=== PATIENT | female | born 1965 | race Caucasian/White ===

== ENCOUNTER 2025-05-07 09:40 | Emergency (ER) | payer OTHER, SELFPAY ==
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
[2025-05-07 09:47] VITALS: BP 170/88; BP 200/120; PULSE 103; PULSE 120; RESP 19; TEMP 36.7; O2SAT 100; O2SAT 97; BMI 40.6
[2025-05-07 10:17] VITALS: BP 133/68; PULSE 98; RESP 16; TEMP 36.7; O2SAT 93
--- OUTSIDE RECORDS SUMMARY | 2025-05-07 10:18 | XMS_ITS ---
Author Name [facility] Organization Unknown Care Team Organization Name Specialty Phone Email Start Date End Da te [facility] Arsalan Puckett [facility] 08/19/2022
--- OUTSIDE RECORDS SUMMARY | 2025-05-07 10:19 | XMS_ITS | Clinical Summary ---
Author Organization [facility] [address] [facility] Address [address] [facility] [place] [address] Phone Care Team Providers Care Warehouse Selector Name Role Phone Arsalan Puckett Primary Care Provider [phone] Allergies Active Allergy Reactions Criticality Noted Date Comments Amoxicillin Trihydrate Hives,Nausea And Vomiting 09/16/2007 Codeine Hives 09/16/2007 Hydrocodone-Acetaminophen Hallucinations 2007 Oxycodone-Acetaminophen Hallucinations 03/02/20 08 [place] 04/06/2018 Tramadol Hcl Hallucinations 03/02/2008 Medications blood-glucose meter kit 1 Lancet by extracorporeal route 1 (one) time each day. E11.9 2 Active metFORMIN (GLUCOPHAGE) 500 mg tablet Take 1 tablet (500 mg total) by mouth 1 (one) time each day with breakfast. E11.9 4 Active levocetirizine (XYZAL) 5 mg tablet Take 1 tablet (5 mg total) by mouth 1 (one) time each day in the evening. Active fluticasone propionate (FLONASE) 50 mcg/actuation nasal spray Administer 2 sprays into affected nostril(s) 1 (one) time each day. 3 Active pedi multivit no.17 w-fluoride 0.25 mg tablet,chewabl e Chew 1 tablet 1 (one) time each day. 2 Active acetaminophen (TYLENOL) 500 mg tablet Take 2 tablets (1,000 mg total) by mouth 3 (three) times a day. 2 Active losartan (COZAAR) 25 mg tablet Take 1 tablet (25 mg total) by mouth 1 (one) time each day. 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 Evaluation by Dr. Bret Barton at the [facility] gastroenterology department, 05/06/2019. Further evaluation of this cyst at this time is not indicated due to its small size. Risk of malignant transformation does not increase until cyst size exceeds 3 cm. He recommended repeat MRI scan in 2021. Enlarged uterus 04/06/2018 Overview (08/19/2024): On CT scan March 2018 Vitamin D deficiency 11/29/2013 Overview (08/19/2024): On weekly supplement 11/29 Obesity, unspecified 10/27/2012 Depression, reactive 12/03/2007 Immunizations Name Administration Dates Next Due Moderna (age 6mo & older) Bi valent, COVID-19, 0.5 mL or 0.25 mL dosage 09/03/2022 Moderna SARS-CoV-2 COVID-19, mRNA, LNP-S, preservative free 07/31/2023,09/14/2021 Td Tetanus diptheria (Tdvax) 7yo and older 05/20 Tdap Tetanus diptheria acell ular pertussis (Boostrix; Adacel) 7yo and older 04/11/2013 Zoster recombinant (Shingrix) 19yo and older ,08/20/2023 Surgical History Surgery Date Site/Laterality Comments CHOLECYSTECTOMY 1996 PROCEDURE: WA LAPAROSCOPY SURG CHOLECYSTECTOMY OTHER SURGICAL HISTORY 01/2008 PROCEDURE: ARTHROSCOPY PROCEDURE NEC; COMMENT: knee surgery dr hebert OTHER SURGICAL HISTORY 12/30/2021 PROCEDURE: WA DILATION & CURETTAGE DX&/THER NONOBSTETRIC; COMMENT: hysteroscopy, D&C polypectomy - dr. henderson OTHER SURGICAL HISTORY 02/17/2022 PROCEDURE: WA LAPAROSCOPY TOT HYSTERECTOMY >250 G W/TUBE/OVAR; COMMENT: Robotic-assisted total laparoscopic hysterectomy with bilateral salpingo-oophorectomy and bilateral sentinel lymph node biopsy with Firefly, repair of vaginal laceration on 02/17/22. Medical History Medical History Date Comments Depression 2008 DX:Depression Enlarged uterus 04/06/2018 DX:Enlarged uter us; COMMENT: On CT scan March 2018 Hypertension DX:Hypertension Family History Medical History Relation Name Comments Hypertension Father Stroke Father Diabetes Maternal Grandfather Diabetes Maternal Grandmother Diabetes Mother Hypertension Mother Colon cancer Mother's side Aunt Breast cancer Neg Hx Ovarian cancer Neg Hx Relation Name Status Comments Brother Alive Father Alive stroke Maternal Grandfather Maternal Grandmother Mother Alive dm htn choleste rol Mother's side Social History Tobacco Use Types Packs/Day Years Used Date Smoking Tobacco: Never Smokeless Tobacco: Never Tobacco Cessation:Counseling Given: Not Answered Alcohol Use Standard Drinks/Week Comments Yes 0 (1 standard drink = 0.6 oz pur e alcohol) Comments Unknown Sex and Gender Information Value Date Recorded Sex Assigned at Female 08/30/2024 7:54 PM EST Legal Sex Female 9:42 PM EST Gender Identity Female 08/30/2024 7:54 PM EST Sexual Orientation Straight 08/30/2024 7: 54 PM EST Obstetrics History Para Term AB IAB SAB Ectopic Multiple Livin g Live Births 0 0 0 Last Filed Vital Signs Vital Sign Reading Time Taken Comments Blood Pressure 143/85 12/16/2024 8:37 AM EST Pulse 83 12/16/2024 8:37 AM EST Temperature 36.3 C (97.3 F) 12/16/2024 8:37 AM EST Respiratory Rate 16 12/16/2024 8:37 AM EST Oxygen Saturation - - Inhaled Oxygen Concentration - - Weight 113 kg (248 lb 3.2 oz) 12/16/2024 8:37 AM EST Height 172.7 cm (5' 8 ) 12/16/2024 8:37 AM EST Body Mass Index 37.74 12/16/2024 8:37 AM EST Plan of Treatment Upcoming Encounters Date Type Department Care Team (Late st Contact Info) Description 05/10/2025 8:30 AM EDT Office Visit [facility] - [address] [phone] Arsalan Puckett, PA [address] [place], [place] 07/28/2025 9:00 AM EDT Office Visit Gastroenterology - [place] [address] [facility] [address] [facility] [address] [place] [address] Kika Olivo, TUSHAR [address] [facility] [address] [place] [address] 02/05/2026 8:20 AM EDT Appointment Radiology Department - [address] [phone] Health Maintenance Due Date Last Done Comments Hepatitis A Vaccines (1 of 2 - Risk 2-dose series) 1986 Hepatitis B Vaccines (1 of 3 - 19+ 3-dose series) 1986 Pneumococcal Vaccine: 50+ Years (1 of 2 - PCV) 1986 Cervical Cancer Screening: HPV 01/27/1988 Colorectal Cancer Screening: Stool Based Tests (FOBT/FIT) 09/20/2022 HIV Screening 09/20/2022 Social Influencers of Health Screening 09/20/2022 COVID-19 Vaccine ( season) 2024 07/31/2023, 09/03/2022, 09/14/2021, Additional history exists Depression Screening 10/12/2024 Diabetes: Blood Sugar Control Test (HGBA1C) 10/21/2025 04/20/2025, 12/09/2024, 05/23/2024, Additional history exists Diabetes: Annual Retina Eye Exam 12/07/2025 12/07/2024, 11/18/2023 Diabetes: Annual Foot Exam 12/13/2025 12/13/2024, Diabetes: Annual Urine Albumin-Creatinine Ratio (uACR) 04/20/2026 04/20/2025, 12/09/2024, 05/23/2024 Diabetes: Annual GFR (Glomerular Filtration Rate) 04/20/2026 04/20/2025, 12/09/2024, 05/23/2024, Additional history exists Hypertension/CHF/CAD Annual BMP Blood Test 04/20/2026 04/20/2025, 12/09/2024, 05/23/2024, Additional history exists Breast Cancer Screening 02/04/2027 02/05/20, 01/02/2024, 12/06/2022, Additional history exists Cholesterol Screening (Lipid Panel) 04/20/2030 04/20/2025, 12/09/2024, 05/23/2024, Additional history exists DTaP,Tdap,and Td Vaccines (3 - Td or Tdap) 05/20/2033 05/20/2023, 04/11/2013 Hepatitis C Screening Completed 03/03/2022 Colorectal Cancer Screening: Colonoscopy Discontinued 05/19/2023 Zoster Vaccines Completed 11/05/2023, 08/20/2023 HIB Vaccines Aged Out No longer eligi ble based on patient's age to complete this topic HPV Vaccines Aged Out No longer eligi ble based on patient's age to complete this topic IPV Vaccines Aged Out No longer eligi ble based on patient's age to complete this topic Influenza Vaccine Discontinued MMR Vaccines Aged Out No longer eligi ble based on patient's age to complete this topic Meningococcal ACWY Vaccine Aged Out N o longer eligible based on patient's age to complete this topic Meningococcal B Vaccine Aged Out No l onger eligible based on patient's age to complete this topic RSV Immunization Patients Under 20 months Aged Out No longer eligible based on patient's age to complete this topic Varicella Vaccines Aged Out No longer eligible based on patient's age to complete this topic Procedures Procedure Name Priority Date/Time Associated Diagnosis Comments LIPID PANEL WITH REFLEX TO DIRECT LDL Routine 04/20/2025 9:15 AM EDT Type 2 diabetes mellitus without complication, without long-term current use of insulin ([facility] V24, [facility] V28) Other hyperlipidemia Essential hypertension Hepatic steatosis Obesity without serious comorbidity, unspecified class, unspecified obesity type Depression, reactive Vitamin D deficiency Pancreatic cyst MICROALBUMIN CREATININE URINE RATIO Routine 04/20/2025 9:15 AM EDT Type 2 diabetes mellitus without complication, without long-term current use of insulin ([facility] V24, [facility] V28) Other hyperlipidemia Essential hypertension Hepatic steatosis Obesity without serious comorbidity, unspecified class, unspecified obesity type Depression, reactive Vitamin D deficiency Pancreatic cyst COMPREHENSIVE METABOLIC PANEL Routine 04/20/2025 9:15 AM EDT Type 2 diabetes mellitus without complication, without long-term current use of insulin ([facility] V24, [facility] V28) Other hyperlipidemia Essential hypertension Hepatic steatosis Obesity without serious comorbidity, unspecified class, unspecified obesity type Depression, reactive Vitamin D deficiency Pancreatic cyst HEMOGLOBIN A1C Routine 04/20/2025 9:15 AM EDT Type 2 diabetes mellitus without complication, without long-term current use of insulin ([facility] V24, [facility] V28) Other hyperlipidemia Essential hypertension Hepatic steatosis Obesity without serious comorbidity, unspecified class, unspecified obesity type Depression, reactive Vitamin D deficiency Pancreatic cyst VITAMIN D 25 HYDROXY Routine 04/20/2025 9:15 AM EDT Type 2 diabetes mellitus without complication, without long-term current use of insulin ([facility] V24, [facility] V28) Other hyperlipidemia Essential hypertension Hepatic steatosis Obesity without serious comorbidity, unspecified class, unspecified obesity type Depression, reactive Vitamin D deficiency Pancreatic cyst MG MAMMO DIGITAL SCREENING W MUNIR BILAT Routine 02/04/2025 8:34 AM EDT Encounter for screening mammogram for breast cancer DIABETES EYE EXAM Routine 11/18/2023 DIABETES FOOT EXAM Routine 10/20/2023 COLONOSCOPY Routine 05/19/2023 HEPATITIS C SCREENING Routine 03/03/2022 from Last 3 Months or Most Recently Relevant to Health Maintenance Results * (ABNORMAL) Lipid panel with reflex to direct LDL (04/20/2025 9:15 AM EDT) Cholesterol 165 0 - 200 mg/dL LAB CHEMISTRY METHOD 04/20/2025 3:41 PM EDT [facility] Triglycerides 189(H) 0 - 150 mg/dL LAB CHEMISTRY METHOD 04/20/2025 3:41 PM EDT [facility] HDL 43 >=40 mg/dL LAB CHEMISTRY METHOD 04/20/2025 3:41 PM EDT [facility] LDL Calculated 84 0 - 100 mg/dL LAB CHEMISTRY METHOD 04/20/2025 3:41 PM EDT [facility] VLDL Cholesterol [place] 37.8 mg/dL LAB CHEMISTRY METHOD 04/20/2025 3:41 PM EDT [facility] Non HDL Chol. (LDL+VLDL) 122 <145 mg/dL LAB CHEMISTRY METHOD 04/20/2025 3:41 PM EDT [facility] Chol/HDL Ratio 3.8 0.0 - 4.4 LAB CHEMISTRY METHOD 04/20/2025 3:41 PM EDT [facility] Blood Venous blood specimen / Unknown Venipuncture / Unknown 04/20/2025 9:15 AM EDT 04/20/2025 9:15 AM EDT us Arsalan LONGORIA LAB BLOOD ORDERABLES Sharon l Result [facility] [address] [place] [address], * Microalbumin creatinine urine ratio (04/20/2025 9:15 AM EDT) Creatinine, Urine 190.0 mg/dL LAB CHEMISTRY METHOD 04/20/2025 11:49 AM EDT [facility] Microalb, Ur 25.6 0.0 - 29.0 mg/L LAB CHEMISTRY METHOD 04/20/2025 11:49 AM EDT [facility] Microalb/Creat Ratio 13 <30 mg/g creat LAB CHEMISTRY METHOD 04/20/2025 11:49 AM EDT [facility] Urine Urine specimen obtained by clean catch procedure / Unknown Non-blood Collection / Unknown 04/20/2025 9:15 AM EDT 04/20/2025 9:15 AM EDT Arsalan LONGORIA LAB URINE ORDERABLES Sharon l Result Performing Organization Address [facility]/ZIP Co de Phone Number [facility] [address] [place] [address], [place] [phone] * Vitamin D 25 hydroxy (04/20/2025 9:15 AM EDT) Vit D, 25-Hydroxy 36.4 30.0 - 80.0 ng/mL LAB CHEMISTRY METHOD 04/20/2025 4:22 PM EDT [facility] Blood Venous blood specimen / Unknown Venipuncture / Unknown 04/20/2025 9:15 AM EDT 04/20/2025 9:15 AM EDT Arsalan LONGORIA LAB BLOOD ORDERABLES Sharon l Result [facility] [address] [place] [address], [place] [phone] * (ABNORMAL) Hemoglobin A1c (04/20/2025 9:15 AM EDT) Hemoglobin A1C 6.6(H) <6.5 % LAB CHEMISTRY METHOD 04/20/2025 12:18 PM EDT [facility] Mean Bld Glu Estim. 143 mg/dL LAB CHEMISTRY METHOD 04/20/2025 12:18 PM [facility] Blood Venous blood specimen / Unknown Venipuncture / Unknown 04/20/2025 9:15 AM EDT 04/20/2025 9:15 AM EDT Arsalan LONGORIA LAB BLOOD ORDERABLES Sharon l Result [facility] [address] [place] [address], * (ABNORMAL) Comprehensive metabolic panel (04/20/2025 9:15 AM EDT) Sodium 140 133 - 145 mmol/L LAB CHEMISTRY METHOD 04/20/2025 3:41 PM [facility] Potassium 4.1 3.5 - 5.5 mmol/L LAB CHEMISTRY METHOD 04/20/2025 3:41 PM [facility] Chloride 105 96 - 110 mmol/L LAB CHEMISTRY METHOD 04/20/2025 3:41 PM [facility] CO2 29 21 - 32 mmol/L LAB CHEMISTRY METHOD 04/20/2025 3:41 PM [facility] Anion Gap 6 3 - 11 LAB CHEMISTRY METHOD 04/20/2025 3:41 PM [facility] Glucose 121(H) 70 - 100 mg/dL LAB CHEMISTRY METHOD 04/20/2025 3:41 PM [facility] BUN 13 5 - 25 mg/dL LAB CHEMISTRY METHOD 04/20/2025 3:41 PM [facility] Creatinine 0.70 0.50 - 1.10 mg/dL LAB CHEMISTRY METHOD 04/20/2025 3:41 PM [facility] eGFR 100 >=60 mL/min/1. 73m2 LAB CHEMISTRY METHOD 04/20/2025 3:41 PM [facility] Comment:Calculation based on the Chronic Kidney Disease Epidemiology Collaboration (CKD-EPI) equation refit without adjustment for race. BUN/Creatinine Ratio 18.6 LAB CHEMISTRY METHOD 04/20/2025 3:41 PM EDT [facility] Calcium 9.1 8.5 - 10.5 mg/dL LAB CHEMISTRY METHOD 04/20/2025 3:41 PM EDT [facility] AST (SGOT) 29 10 - 42 unit/L LAB CHEMISTRY METHOD 04/20/2025 3:41 PM EDT [facility] ALT (SGPT) 59 10 - 60 unit/L LAB CHEMISTRY METHOD 04/20/2025 3:41 PM EDT [facility] Alkaline Phosphatase 99 42 - 121 unit/L LAB CHEMISTRY METHOD 04/20/2025 3:41 PM [facility] Total Protein 7.3 6.0 - 8.0 g/dL LAB CHEMISTRY METHOD 04/20/2025 3:41 PM EDT [facility] Albumin 4.0 3.2 - 5.0 g/dL LAB CHEMISTRY METHOD 04/20/2025 3:41 PM T [facility] Total Bilirubin 0.7 0.0 - 1.4 mg/dL LAB CHEMISTRY METHOD 04/20/2025 3:41 PM EDT [facility] Blood Venous blood specimen / Unknown Venipuncture / Unknown 04/20/2025 9:15 AM EDT 04/20/2025 9:15 AM EDT us Arsalan LONGORIA LAB BLOOD ORDERABLES Sharon l Result [facility] [address] [place] [address], * MG Mammo Digital Screening w Munir bilat (02/04/2025 8:34 AM EDT) Anatomical Region Laterality Modality Breast Bilateral Mammography 02/04/2025 4:28 PM EDT Impressions 02/04/2025 4:32 PM EDT No mammographic evidence of malignancy. BI-RADS CATEGORY: 1 - NEGATIVE RECOMMENDATION: Screening bilateral mammogram is recommended in 1 year. Mammo Location: [facility], [address] [place] [address], [id number], . -------- FINAL REPORT -------- Dictated By: Karissa Maria Dictated Date: 02/04/2025 16:28 ET Assigned Physician: Karissa Maria Reviewed and Electronically Signed By: Karissa Maria Signed Date: 02/04/2025 16:32 ET Workstation ID: [id number] Transcribed By: Self Edit Transcribed Date: 02/04/2025 16:28 ET Narrative 02/04/2025 4:32 PM EDT Bilateral screening mammogram. CLINICAL: 60 years old, Female, routine annual exam. COMPARISON: Prior studies, latest from 01/02/2024. TECHNIQUE: Bilateral MLO and CC views were obtained digitally with 2-D C views and 3-D mammogram (digital breast tomosynthesis). Examination was slightly limited due to patient's body habitus. Total 11 images were obtained. Computer-aided detection was utilized in evaluation of this exam (CAD). FINDINGS: There is no evidence of suspicious mass or architectural distortion. No worrisome calcifications are evident. There has been no significant change from prior exam(s). BREAST DENSITY: B - There are scattered areas of fibroglandular density. Procedure Note Karissa Maria MD - 02/04/2025 Bilateral screening mammogram. CLINICAL: 60 years old, Female, routine annual exam. COMPARISON: Prior studies, latest from 01/02/2024. TECHNIQUE: Bilateral MLO and CC views were obtained digitally with 2-D Cviews and 3-D mammogram (digital breast tomosynthesis). Examination wasslightly limited due to patient's body habitus. Total 11 images wereobtained. Computer-aided detection was utilized in evaluation of thisexam (CAD). FINDINGS: There is no evidence of suspicious mass or architectural distortion. Noworrisome calcifications are evident. There has been no significantchange from prior exam(s). BREAST DENSITY: B - There are scattered areas of fibroglandular density. IMPRESSION: No mammographic evidence of malignancy. BI-RADS CATEGORY: 1 - NEGATIVE RECOMMENDATION: Screening bilateral mammogram is recommended in 1 year. Mammo Location: [facility], [address] [place] [address], [id number], . -------- FINAL REPORT -------- Dictated By: Karissa Maria Dictated Date: 02/04/2025 16:28 ET Assigned Physician: Karissa Maria Reviewed and Electronically Signed By: Karissa Maria Signed Date: 02/04/2025 16:32 ET Workstation ID: [id number] Transcribed By: Self Edit Transcribed Date: 02/04/2025 16:28 ET Arsalan LONGORIA IMG BI PROCEDURES Final R esult * Diabetes Eye Exam (11/18/2023) [facility] Diabetes: Annual Retina Eye Exam abstracted [facility] Provider HEALTH MAINTENANCE Final Result * Diabetes Foot Exam (10/20/2023) [facility] Diabetes: Annual Foot Exam abstracted Result [facility] HEALTH MAINTENANCE Final Result * Colonoscopy (05/19/2023) [facility] Colonoscopy negative, abstracted Anatomical Region Laterality Modality Other Result [facility] HEALTH MAINTENANCE Final Result * Hepatitis C Screening (03/03/2022) [facility] Hepatitis C Screening abstracted Result [facility] HEALTH MAINTENANCE Final Result from Last 3 Months or Most Recently Relevant to Health Maintenance Insurance [facility] Advance Directives Documents on File Type Date Recorded Patient Senior Devops Engineer Expl anation Health Care Decision (hx) 02/17/2022 AD SWANSON DIRECTIVE Health Care Decision (hx) 02/17/2022 AD SWANSON DIRECTIVE Health Care Decision (hx) 02/17/2022 AD SWANSON DIRECTIVE Health Care Decision (hx) 02/17/2022 AD SWANSON DIRECTIVE Health Care Decision (hx) 02/17/2022 AD SWANSON DIRECTIVE Care Teams Warehouse Selector Relationship Specialty Start Date End Date Arsalan Puckett PA [address] [place] [address] PCP - General Internal Medicine 08/23/24
--- OUTSIDE RECORDS SUMMARY | 2025-05-07 10:19 | XMS_ITS | Clinical Summary ---
Author Organization [facility] Address [address] [place] [phone] Phone Care Team Providers Care Enterprise Software Developer Name Role Phone Arsalan Puckett Primary Care Provid er Allergies Active Allergy Reactions Criticality Noted Date Comments Amoxicillin Hives,Nausea And Vomiting 7 Codeine Swelling,Hives 09/16/2007 Hydrocodone-Acetaminophen Mental Status Change 03/02/2008 [place] 04/06/2018 Tramadol Hcl Mental Status Change 03/02/2008 Medications No known medications Social History Tobacco Use Types Packs/Day Years Used Date Smoking Tobacco: Never Assessed Education Answer Date Recorded Are you interested in more education? Not on mark e 07/20/2024 Are you concerned about learning? Not on file 07/20/2024 No 07/20/2024 No 07/20/2024 Digital Access Answer Date Recorded No 07/20/2024 No 07/20/2024 Reliable internet access at home? Not on file 07/20/2024 Device with a working camera? Not on file Comments Unknown Sex and Gender Information Value Date Recorded Sex Assigned at Not on file Legal Sex Female 2:52 PM EDT Gender Identity Not on file Sexual Orientation Not on file Plan of Treatment Upcoming Encounters Date Type Department Care Team ([facility] st Contact Info) Description 05/15/2025 10:30 AM EDT Office Visit [facility] Medicine [address] [place] [phone] Alexa Lyles MD [address] [place] [address] [facility] [place] [address] [email or web address] Health Maintenance Due Date Last Done Comments DEPRESSION SCREENING 1979 SMOKING Hx and SMOKELESS TOBACCO SCREENING 01/27/1980 HEPATITIS C SCREENING 1985 HIV ONE-TIME SCREENING (18-65 YEARS) 1985 PAP SMEAR 01/27/1988 MAMMOGRAM 2007 COLOGUARD 01/27/2012 COLONOSCOPY 01/27/2012 COLORECTAL CANCER SCREENING 01/27/2012 FIT TEST 01/27/2012 FOBT 01/27/2012 SIGMOIDOSCOPY 01/27/2012 VIRTUAL COLONOSCOPY 01/27/2012 PNEUMOCOCCAL VACCINES (50+ years) (1 of 1 - PCV) 2017 Adult Td,Tdap Booster 04/11/2023 04/11/2013 COVID-19 VACCINE ( season) 2024 07/31/2023, 09/03/2022, 09/14/2021, Additional history exists LIPID PANEL 12/09/2029 12/09/2024, 05/23/2024 ZOSTER VACCINES Completed 11/05/2023, 08/20/2023 HEPATITIS A VACCINES Aged Out No long er eligible based on patient's age to complete this topic HIB VACCINES Aged Out No longer eligi ble based on patient's age to complete this topic MENINGOCOCCAL VACCINES (ACWY) Aged Out No longer eligible based on patient's age to complete this topic MENINGOCOCCAL VACCINES (B) Aged Out N o longer eligible based on patient's age to complete this topic Medical Devices Not on file Insurance [facility] Care Teams Enterprise Software Developer Relationship Specialty Start Date End Date Arsalan Puckett PA [address] [place] [id number] PCP - General Physician Manager Technical Sales 07/20/24 Additional Source Comments The information contained in this document represents components of the legal health record. It is not the complete legal health record[facility]
--- OUTSIDE RECORDS SUMMARY | 2025-05-07 10:19 | XMS_ITS | Patient Health Record ---
Author Organization [facility] [place] Address [address] [place] [id number] Care Team Providers Care Charge Master Specialist Name Role Phone Arsalan Rojas Primary Care Provider Unav ailable Pavel Turpin Unavailable [phone] Lillian Fraser Unavailable [phone] Allergies Allergen (clinical drug ingredient) Drug/Non Drug Allergy documented on EMR Reaction Allergy Type Onset Date Status strawberry allergenic extract Strawberries (uncoded) Unknown Allergy Activ e amoxicillin Amoxicillin hives Drug Allergy Act zakia Penicillin hives Drug Allergy Active codeine Codeine hives Drug Allergy Active Results Component Value Reference Range Notes HEMOGLOBIN A1C (GLYCOHEMOGLO BIN) Reviewed date:05/30/2024 08:29:06 AM Interpretation: Performing Lab: Notes/Report: HEMOGLOBIN A1C % (HH) 6.7 Reason For Referral Diagnosis 1 Plantar fascial fibr omatosis (M72.2) Diagnosis 2 Calcaneal spur, left foot (M77.32) Diagnosis 3 Pain in left foot (M 79.672) Diagnosis 4 Achilles tendinitis, left leg (M76.62) Referring Provider First Name Arsalan Referring Provider Last Name Italo [facility] [place] Referred Provider Pavel Turpin Referred Address [address],[place],[phone], Referred Provider Specialty Podiatry Referral Priority Routine Medications Medication SIG (Take, Route, Frequency, Duration) Notes Start Date End Date Status Physical Therapy . . . 2-3x/week; Durat ion: 3-4 weeks 09/22/2018 Unknown Night Splint AFO - L1930 as directed 07/12/2018 Unknown CeleBREX 200 MG 1 capsule with food Orally Once a day; Duration: 30 day(s) 08/23/2018 Unknown Meloxicam 15 MG 1 tablet Orally Once a day; Duration: 30 Unknown Physical Therapy . . . 2-3x/week; Durat ion: 3-4 weeks Active Xyzal Active metFORMIN HCl 500 MG TAKE 1 TABLET BY MO UTH EVERY DAY WITH BREAKFAST Oral; Duration: 90 Active Branden Endosol Extra Ac tive Losartan Potassium A ctive Social History Tobacco Use: Social History Observation Description Date Details (start date - stop date) Never Smoker NA - NA Tobacco Use/Smoking Question Answer Notes Are you a: nonsmoker Additional Findings: Tobacco Non-User Current no n-smoker Alcohol Screen Question Answer Notes Did you have a drink containing alcohol in the p ast year? Yes Points 0 Interpretation Negative Tobacco use other than smoking: Question Answer Notes Are you an other tobacco user? 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) Active confirmed Vital Signs Height 5 ft 8in in 05/30/2024 Weight 240 lbs lbs 05/30/2024 BMI 36.49 kg/m2 05/30/2024 Encounters Encounter Location Date Provider Diagnosis [address] [address] 05/30/2024 Pavel Turpin Plantar fascial fibromatosis M72.2 ; Pain in left foot M79.672 ; Achilles tendinitis, left leg M76.62 ; Calcaneal spur, left foot M77.32 and Type 2 diabetes mellitus with diabetic neuropathy affecting both sides of body E11.[address] [address] 07/18/2024 Pavel Turpin Pain in left foot M79.672 ; Achilles tendinitis, left leg M76.62 ; Calcaneal spur, left foot M77.32 and Type 2 diabetes mellitus with diabetic neuropathy affecting both sides of body E11.[address] [address] 08/08/2024 Pavel Turpin [address] [place] [address] 08/24/2024 Pavel Turpin Assessments Encounter Date Diagnosis (ICD Code) Assessment Notes Treatment Notes Treatment Clinical Notes Section Notes 05/30/2024 Plantar fascial fibromatosis (ICD-10 - M72.2) 05/30/2024 Pain in left foot (ICD-10 - M79.672) 07/18/2024 Pain in left foot (ICD-10 - M79.672) 07/18/2024 Achilles tendinitis, left leg (ICD-10 - M76.62) 07/18/2024 Calcaneal spur, left foot (ICD-10 - M77.32) 05/30/2024 Achilles tendinitis, left leg (ICD-10 - M76.62) 05/30/2024 Calcaneal spur, left foot (ICD-10 - M77.32) 07/18/2024 Type 2 diabetes mellitus with diabetic neuropathy affecting both sides of body (ICD-10 - E11.42) 05/30/2024 Type 2 diabetes mellitus with diabetic neuropathy affecting both sides of body (ICD-10 - E11.42) Plan Of Treatment Pending Test Test Name Order Date X ray : Foot, left 3V 07/12/2018 X ray : Foot, left 3V 12/16/2018 X ray : Foot, left 3V 05/30/2024 Insurance Providers Payer Name Payer Address Payer Phone Subscriber Number Group Number Insured Name Patient Relationship to Insured Coverage Start Date Coverage End Date [facility] [address] [place] [address] [phone] [id number] Cristy Redd Self - patient is the insured Medical (General) History Medical History History ICD Code asthma Anemia Back pain Knee Pain Mumps Measles Chicken pox gall stones Pre Cancer covid-19 Diabetic Surgical History Surgery Date(Month/Year) torn meniscus right knee 2007 gallbladder removed 1999 hysterectomy 02/2022 Hospitalization History Reason Date(Month/Year[place] [facility] [place] [place] [facility] [place] [facility] [place]
[2025-05-07 11:43] VITALS: BP 141/82; PULSE 94; RESP 18; TEMP 36.9; O2SAT 96
== END 2025-05-07 11:44 | disposition home or self-care (01) ==
PROVIDERS: Emergency Provider Emergency Medicine; PCP Physician Assistant Medical
DX: S09.90XA Unspecified injury of head, initial encounter (principal); F41.9 Anxiety disorder, unspecified; R51.9 Headache, unspecified; V43.52XA Car driver injured in collision with other type car in traffic accident, initial encounter; Y93.9 Activity, unspecified; Y92.410 Unspecified street and highway as the place of occurrence of the external cause; Y99.8 Other external cause status
CPT/HCPCS: 99283